=== PATIENT | male | born 1960 | race Two or more races ===

== ENCOUNTER 2025-08-24 15:59 | Emergency (ER) | payer OTHER ==
[~2025-08-24] VITALS: Ht 180.3 cm; Wt 81.6 kg
[2025-08-24 16:10] VITALS: TEMP 98.3
[2025-08-24 18:15] VITALS: BP 128/75; O2SAT 98
== END 2025-08-24 17:51 ==
LOC: ER 16:04
DX: S05.12XA Contusion of eyeball and orbital tissues, left eye, initial encounter (principal); I10 Essential (primary) hypertension; Z65.3 Problems related to other legal circumstances; Y04.0XXA Assault by unarmed brawl or fight, initial encounter; Y93.89 Activity, other specified; Y92.89 Other specified places as the place of occurrence of the external cause; Y99.8 Other external cause status
CPT/HCPCS: 70450-TC; 70486-TC